=== PATIENT | female | born 1955 | race Caucasian/White ===

== ENCOUNTER 2017-12-10 18:51 | Emergency (ER) | payer OTHER ==
[~2017-12-10] VITALS: Ht 157.5 cm; Wt 61.3 kg
[~2017-12-10 18:51] MED LIST: DOCU-299 PO; HYDR2TAB6 PO; TRAM50TA1 PO
[2017-12-10 19:15] VITALS: BP 113/75
[2017-12-10 19:18] VITALS: BP 113/75
--- NOTE | 2017-12-10 19:18 | NUR ---
to lobby, a/w spencer torres ermd noted
--- NOTE | 2017-12-10 19:41 | NUR ---
TO ER BED 1
--- NOTE | 2017-12-10 20:15 | NUR ---
PT LEFT WITH OUT BEING SEEN
== END 2017-12-10 20:15 | disposition left against medical advice (07) ==
LOC: MED 18:51
DX: R21 Rash and other nonspecific skin eruption (principal); Z53.21 Procedure and treatment not carried out due to patient leaving prior to being seen by health care provider